=== PATIENT | female | born 1940 | race Two or more races ===

== ENCOUNTER 2020-07-31 00:02 | Inpatient (IN) | payer MEDICARE, OTHER ==
[~2020-07-31] VITALS: Ht 162.6 cm; Wt 57.2 kg
--- NOTE | 2020-07-31 00:10 | NUR ---
PT AAOX3. JENNIFER FROM [facility] S/P UNWITNESSED FALL. PT PLACED IN BED 9 ON MONITOR AND PULSE OX. MD AT BEDSIDE FOR EVAL. AWAITING ORDERS.
--- NOTE | 2020-07-31 00:13 | NUR ---
HUY [phone]
--- NOTE | 2020-07-31 00:15 | NUR ---
LINE ESTABLISHED LAC 20G, BLOOD DRAWNM, AND SENT TO LAB.
[2020-07-31 00:36] LABS: BASOPHILS # (AUTO) 0.1 /CMM (0.0-0.2); BASOPHILS % (AUTO) 0.3 % (0.0-2.0); HEMATOCRIT 37 % (33-45); HEMOGLOBIN 11.9 g/dL (11.5-14.8); LYMPHOCYTES # (AUTO) 0.4 /CMM (0.8-4.8); LYMPHOCYTES % (AUTO) 2.4 % (20.0-44.0); MEAN CORPUSCULAR HGB CONC 33 g/dl (31.0-36.0); MEAN CORPUSCULAR VOLUME 91 fL (82-100); MONOCYTES # (AUTO) 0.6 /CMM (0.1-1.30); MONOCYTES % (AUTO) 3.9 % (2.0-12.0); NEUTROPHILS # (AUTO) 13.8 /CMM (1.8-8.9); NEUTROPHILS % (AUTO) 93.4 % (43.0-81.0); PLATELET COUNT (AUTO) 265 /CMM (150-450); RED BLOOD CELL COUNT(AUTO) 4.01 MIL/uL (4.0-5.2); WHITE BLOOD COUNT (AUTO) 14.8 K/uL (4.3-11.0)
--- NOTE | 2020-07-31 00:38 | NUR ---
NATALIEID SWABBED, SENT TO LAB.
--- NOTE | 2020-07-31 00:38 | NUR ---
CHECKED PT'S PAPER WORK, NO MED LIST.
--- NOTE | 2020-07-31 00:47 | NUR ---
BROUGHT TO CT
--- NOTE | 2020-07-31 01:04 | NUR ---
call from lab, rapid covid negative.
[2020-07-31 01:26] LABS: ALANINE AMINOTRANSFERASE 26 U/L (12-78); ALBUMIN 3.1 g/dL (3.4-5.0); ALKALINE PHOSPHATASE 104 U/L (46-116); ASPARTATE AMINOTRANSFERASE 24 U/L (15-37); BILIRUBIN,DIRECT 0.1 mg/dL (0.0-0.2); BILIRUBIN,TOTAL 0.4 mg/dL (0.2-1.0); CALCIUM, SERUM 8.3 mg/dL (8.5-10.1); CARBON DIOXIDE 24 mmol/L (21-32); CHLORIDE 104 mmol/L (98-107); CREATININE 1.3 mg/dL (0.6-1.3); GLUCOSE 272 mg/dL (74-106); POTASSIUM 4.4 mmol/L (3.5-5.1); SODIUM SERUM 138 mmol/L (136-145); TOTAL PROTEIN, SERUM 7.4 g/dL (6.4-8.2); UREA NITROGEN, BLOOD 28 mg/dL (7-18)
--- NOTE | 2020-07-31 01:27 | NUR ---
BED ASSIGNMENT 114-1
--- NOTE | 2020-07-31 01:50 | NUR ---
REPORT GIVEN TO EVELYN ANDRE FOR ZIA
--- NOTE | 2020-07-31 01:52 | NUR ---
SPOKE TO THE PT'S DAUGHTER REGARDING PLAN OF CARE
[2020-07-31] MEDS ORDERED: TEMAZEPAM 15 MG CAPSULE PO PRN (02:00)
[2020-07-31] MEDS ORDERED: ONDANSETRON HCL/PF 4 MG/2 ML VIAL IVP PRN (02:00)
[2020-07-31] MEDS ORDERED: Z GUARD REMEDY 2 OZ OINT TP PRN (02:00)
[2020-07-31] MEDS ORDERED: MAGNESIUM HYDROXIDE 30 ML UDC PO PRN (02:00)
[2020-07-31] MEDS ORDERED: MAG HYDROX/AL HYDROX/SIMETH 30 ML UDC PO PRN (02:00)
[2020-07-31] MEDS ORDERED: DEXTROSE 50%-WATER 50 ML DISP.SYRIN IV PRN (02:00)
[2020-07-31] MEDS ORDERED: MORPHINE SULFATE INJ 2 MG/ML DISP.SYRIN IV PRN (02:00)
[2020-07-31] MEDS ORDERED: HYDROCODONE/APAP 5/325MG TABLET PO PRN (02:00)
[2020-07-31 02:05] VITALS: BP 130/64
--- NOTE | 2020-07-31 02:05 | NUR ---
RECEIVED PT VIA GURNEY FROM ED. ON ROOM AIR. VITAL SIGNS. 98.0 HR 90. O2 SAT 96% BP 130/64. TELE MONITORING IN PLACE. PT VERBALIZED DESIRE TO BE FULL CODE. NO S/S OF RESP DISTRESS OR SOB. BREATHING EVEN AND UNLABORED. IV SITE IS FLUSHED, PATENT. PT DENIES PAIN AT THIS TIME. PT IS A/O X 2-3. CONFUSED. BUT COOPERATIVE. SAFETY MEASURES IN PLACE; BED LOCKED IN LOWEST POSITION WITH BED ALARM ON. WILL CONTINUE TO MONITOR.
--- NOTE | 2020-07-31 02:06 | NUR ---
PT TRANSFERED PER ACLS PROTOCOL
[2020-07-31 04:00] VITALS: BP 116/62
[2020-07-31] MEDS: IV NS 0.9% 1,000 ML IV PRN ×2 (04:33→20:25)
--- NOTE | 2020-07-31 07:55 | NUR ---
RN CLOSING NOTES PT RESTED WELL THROUGHOUT THE NIGHT. NO S/S OF APPARENT DISTRESS OR SOB OR RESP DISTRESS AT THIS TIME. NEEDS ATTENDED. DENIES PAIN AT THIS TIME. NO BM TONIGHT. PT CLEANED. REPOSITIONED Q2H. HEELS FLOATED. VERBALIZED BM 07/30. IVF 0.9 NS RUNNING AT 75ML/HR. NO S/S OF INFILTRATION NOTED AT THIS TIME. SAFETY MEASURES IN PLACE. BED LOCKED IN LOWEST POSITION. BED ALARM ON. CALL LIGHT WITHIN REACH. ENDORSED TO AM NURSE FOR CONTINUATION OF CARE.
[2020-07-31 08:00] VITALS: BP_SYST 120; BP_SYST 125; BP_DIAS 61; BP_DIAS 82
--- NOTE | 2020-07-31 08:00 | NUR ---
BOX PRINTING MACHINE OPERATOR AM NOTES RECEIVED PT COMFORTABLY LYING IN BED.CONFUSED. NO SOB ON ROOM AIR. NO S/S OF DISCOMFORT. NEEDS ATTENDED. DENIES PAIN AT THIS TIME. NO BM TONIGHT. PT CLEANED. REPOSITIONED Q2H. HEELS FLOATED. IVF 0.9 NS RUNNING AT 75ML/HR ON LT AC INFUSING WELL. NO S/S OF INFILTRATION NOTED AT THIS TIME. SAFETY MEASURES IN PLACE. BED LOCKED IN LOWEST POSITION. BED ALARM ON. CALL LIGHT WITHIN REACH.
[2020-07-31] MEDS: BLOOD SUGAR DIAGNOSTIC 1 EACH STRIP IN SCH ×4 (08:38→22:40)
[2020-07-31] MEDS: INSULIN REGULAR, HUMAN 100 UNIT/ML 3 ML VIAL SQ PRN ×4 (08:40→22:42)
[2020-07-31] MEDS: ENOXAPARIN SODIUM 30 MG/0.3 ML DISP.SYRIN SQ SCH (08:41)
[2020-07-31] MEDS ORDERED: MULT-594 PO (10:00)
[2020-07-31] MEDS ORDERED: SENN-261 PO (10:00)
[2020-07-31] MEDS ORDERED: DOCU-270 PO (10:00)
[2020-07-31] MEDS ORDERED: FERR325T29 PO (10:00)
[2020-07-31] MEDS ORDERED: ASPI-1169 PO (10:00)
[2020-07-31] MEDS ORDERED: SODI1TAB24 PO (10:22)
[2020-07-31] MEDS ORDERED: INSU3INS8 SQ ×2 (10:22)
[2020-07-31] MEDS ORDERED: ACET-2605 PO (10:22)
[2020-07-31] MEDS ORDERED: TRAM50TA2 PO (10:22)
[2020-07-31 12:00] VITALS: BP 115/61
[2020-07-31 12:55] LABS: APPEARANCE,URINE TURBID (CLEAR)
[2020-07-31 12:56] LABS: COLOR,URINE YELLOW (YELLOW)
[2020-07-31 12:57] LABS: BILIRUBIN,URINE NEGATIVE (NEGATIVE); BLOOD, URINE 2+ Ery/uL (NEGATIVE); KETONES,URINE TRACE (NEGATIVE); PROTEIN,URINE 2+ mg/dl (NEGATIVE); UGLUCOSE 1000 MG/DL mg/dL (NEGATIVE); UROBILINOGEN,URINE 0.2 EU/dL (0.2)
[2020-07-31 12:58] LABS: LEUKOCYTE ESTERASE ,URINE 2+ (NEGATIVE); NITRITE, URINE NEGATIVE (NEGATIVE)
[2020-07-31 12:59] LABS: BACTERIA,URINE Many /HPF (None Seen); SQUAMOUS EPITHELIAL CELL,UR Few /HPF (None Seen); WBC,URINE 51-80 /HPF (0-3)
[2020-07-31 16:00] VITALS: BP 137/64
[2020-07-31 16:50] LABS: CREATININE, URINE < 13.0 MG/DL (30.0-125.0); URINE SODIUM, RANDOM 65 mmol/l (40-220); URINE TOTAL PROTEIN 126.3 mg/dL (0-11.9)
--- NOTE | 2020-07-31 18:30 | NUR ---
FREDO RN NOTE AT 1830 PT HAD A LOW GRADE FEVER OF 100.4 F. COOLING MEASURES RENDERED. PT EDUCATED AND ENCOURAGED TO DRINK AND PUSH FLUIDS. PT DRANK COFFEE THROUGHOUT THE SHIFT. PAGED DR Lara CHATTERJEE. TYLENOL 650 MG PO ADMINISTERED.
[2020-07-31] MEDS: ACETAMINOPHEN 325 MG TABLET PO PRN (18:35)
[2020-07-31 20:00] VITALS: BP 130/61
[2020-07-31] MEDS: CEFTRIAXONE 1 G in IV D5W 50 ML IV SCH (20:20)
[2020-08-01] VITALS: BP 120/51
[2020-08-01 04:00] VITALS: BP 121/60
[2020-08-01 06:28] LABS: BASOPHILS # (AUTO) 0.1 /CMM (0.0-0.2); BASOPHILS % (AUTO) 0.7 % (0.0-2.0); EOSINOPHILS % (AUTO) 1.5 % (0.0-6.0); HEMATOCRIT 33 % (33-45); HEMOGLOBIN 10.9 g/dL (11.5-14.8); MEAN CORPUSCULAR HGB CONC 33 g/dl (31.0-36.0); MEAN CORPUSCULAR VOLUME 90 fL (82-100); MONOCYTES # (AUTO) 0.6 /CMM (0.1-1.30); MONOCYTES % (AUTO) 7.3 % (2.0-12.0); NEUTROPHILS # (AUTO) 6.8 /CMM (1.8-8.9); NEUTROPHILS % (AUTO) 78.5 % (43.0-81.0); PLATELET COUNT (AUTO) 225 /CMM (150-450); RED BLOOD CELL COUNT(AUTO) 3.64 MIL/uL (4.0-5.2); WHITE BLOOD COUNT (AUTO) 8.7 K/uL (4.3-11.0)
[2020-08-01 06:36] LABS: ALBUMIN 2.4 g/dL (3.4-5.0); BILIRUBIN,TOTAL 0.4 mg/dL (0.2-1.0); CALCIUM, SERUM 7.8 mg/dL (8.5-10.1); CREATININE 1.1 mg/dL (0.6-1.3); MAGNESIUM 2.2 mg/dL (1.8-2.4); PHOSPHORUS 2.3 mg/dL (2.5-4.9); POTASSIUM 3.9 mmol/L (3.5-5.1); TOTAL PROTEIN, SERUM 6.1 g/dL (6.4-8.2)
[2020-08-01 06:53] LABS: THYROID STIMULATING HORMONE 1.481 uIU/mL (0.358-3.74)
--- NOTE | 2020-08-01 07:15 | NUR ---
LEAD TINNER OPENING NOTES RECEIVED PT COMFORTABLY LYING IN BED. A/O X2-3, CONFUSED. ON ROOM AIR SATURATING @95%. NO SOB. NO PAIN REPORTED AT THIS TIME. L AC #20 INTACT AND PATENT. IVF 0.9 NS RUNNING AT 75ML/HR, INFUSING WELL. NO SIGNS OF INFILTRATION NOTED AT THIS TIME. SAFETY MEASURES IN PLACE. CALL LIGHT WITHIN REACH. BED LOCKED AND AT LOWEST POSITION WITH SIDE RAILS UP X2. BED ALARM ON. WILL CONTINUE TO MONITOR
[2020-08-01] MEDS: BLOOD SUGAR DIAGNOSTIC 1 EACH STRIP IN SCH ×4 (07:38→21:45)
[2020-08-01 08:00] VITALS: BP 115/56
[2020-08-01] MEDS: ENOXAPARIN SODIUM 30 MG/0.3 ML DISP.SYRIN SQ SCH (08:25)
[2020-08-01] MEDS: INSULIN REGULAR, HUMAN 100 UNIT/ML 3 ML VIAL SQ PRN ×4 (08:26→21:49)
[2020-08-01] MEDS: IV NS 0.9% 1,000 ML IV PRN (10:18)
[2020-08-01] MEDS: ASPIRIN 81 MG TAB.CHEW PO SCH (10:20)
[2020-08-01 10:31] LABS: IRON, SERUM 24 ug/dl (50-175); TOTAL IRON BINDING CAPACITY 200 ug/dl (250-450)
[2020-08-01 12:00] VITALS: BP 134/58
[2020-08-01 13:09] LABS: FERRITIN 89 ng/mL (8-388)
[2020-08-01 16:00] VITALS: BP 130/57
[2020-08-01] MEDS ORDERED: NEUTRA PHOS 1 POWD.PACKET PO ONE (16:00)
--- NOTE | 2020-08-01 19:28 | NUR ---
SUPERVISOR BEET END CLOSING NOTES PT COMFORTABLY LYING IN BED. A/O X2-3, EPISODES OF CONFUSION. ON ROOM AIR SATURATING @95%. NO SOB. NO PAIN REPORTED AT THIS TIME. L AC #20 INTACT AND PATENT. IVF 0.9 NS RUNNING AT 75ML/HR, INFUSING WELL. NO SIGNS OF INFILTRATION NOTED AT THIS TIME. SAFETY MEASURES IN PLACE. CALL LIGHT WITHIN REACH. BED LOCKED AND AT LOWEST POSITION WITH SIDE RAILS UP X2. BED ALARM ON. WILL ENDORSE TO NIGHT NURSE FOR ZIA
--- NOTE | 2020-08-01 19:53 | NUR ---
SUPERVISING FLOORPERSON OPENING NOTE RECEIVED PT IN BED. A/O X2. BREATHING EVEN AND UNLABORED IN RA. DENIES ANY PAIN OR DISCOMFORT. LEFT AC #20 INTACT AND PATENT. DRESSING CLEAN AND DRY. IV FLUIDS INFUSING WELL. ALL NEEDS RENDERED. KEPT CLEAN AND DRY. BED IN LOWEST POSITION. CALL LIGHT WITHIN REACH. WILL CONTINUE TO MONITOR
[2020-08-01 20:00] VITALS: BP 139/45
[2020-08-01] MEDS: CEFTRIAXONE 1 G in IV D5W 50 ML IV SCH (20:14)
[2020-08-02] VITALS: BP 137/55
[2020-08-02] MEDS: IV NS 0.9% 1,000 ML IV PRN ×2 (00:33→13:08)
[2020-08-02] MEDS: ACETAMINOPHEN 325 MG TABLET PO PRN (01:13)
[2020-08-02 04:00] VITALS: BP 127/51
--- NOTE | 2020-08-02 06:23 | NUR ---
rn labor and delivery closing note Pt in bed. awake . breathing even and unlabored with no sob or acute distress noted. Denies any pain or discomfort. Left ac iv line patent and intact. Iv fluids infusing well. Kept clean and dry. All needs rendered. Repositioned. Will endorse to am nurse for continuity of care.
[2020-08-02 07:29] LABS: EOSINOPHILS % (AUTO) 5.3 % (0.0-6.0); HEMATOCRIT 32 % (33-45); HEMOGLOBIN 10.4 g/dL (11.5-14.8); LYMPHOCYTES # (AUTO) 1.2 /CMM (0.8-4.8); LYMPHOCYTES % (AUTO) 25.5 % (20.0-44.0); MEAN CORPUSCULAR HGB CONC 33 g/dl (31.0-36.0); MEAN CORPUSCULAR VOLUME 90 fL (82-100); MONOCYTES # (AUTO) 0.5 /CMM (0.1-1.30); MONOCYTES % (AUTO) 10.8 % (2.0-12.0); NEUTROPHILS # (AUTO) 2.7 /CMM (1.8-8.9); NEUTROPHILS % (AUTO) 57.4 % (43.0-81.0); PLATELET COUNT (AUTO) 203 /CMM (150-450); RED BLOOD CELL COUNT(AUTO) 3.52 MIL/uL (4.0-5.2); WHITE BLOOD COUNT (AUTO) 4.8 K/uL (4.3-11.0)
--- NOTE | 2020-08-02 07:36 | NUR ---
TELE/RN OPINING NOTES RECEIVED PATIENT AWAKE ON BED.ALERT AND ORIENTED X3 CONFUSED. PATIENT IN NO APPARENT RESPIRATORY DISTRESS NOTED. DENIES PAIN AT THIS TIME. TELE MONITOR IN PLACE READING SB-SR 61 BPM. WILL CONTINUE TO MONITOR.
[2020-08-02] MEDS: BLOOD SUGAR DIAGNOSTIC 1 EACH STRIP IN SCH ×3 (07:38→17:21)
[2020-08-02 08:00] VITALS: BP 123/46
[2020-08-02 08:30] LABS: CALCIUM, SERUM 7.6 mg/dL (8.5-10.1); MAGNESIUM 2.2 mg/dL (1.8-2.4); PHOSPHORUS 2.7 mg/dL (2.5-4.9)
[2020-08-02] MEDS: ASPIRIN 81 MG TAB.CHEW PO SCH (08:35)
[2020-08-02] MEDS: ENOXAPARIN SODIUM 30 MG/0.3 ML DISP.SYRIN SQ SCH (08:36)
--- NOTE | 2020-08-02 10:44 | NUR ---
MS/RN NOTES PATIENT COMPLAINED OF PAIN RATED 7/10. NORCO 5/325MG 1 TAB WAS GIVEN. WILL CONTINUE TON MONITOR.
[2020-08-02] MEDS: INSULIN REGULAR, HUMAN 100 UNIT/ML 3 ML VIAL SQ PRN ×2 (11:15→17:21)
[2020-08-02] MEDS ORDERED: SOD FERRIC GLUC 125 MG in IV NS 0.9% 100 ML IV SCH (14:00)
--- NOTE | 2020-08-02 14:13 | NUR ---
MS/RN NOTES [facility] 9.9 REPORT GIVEN BY Videostir, DR. MARTINEZ IS AWARE. NO NEW ORDER AT THIS TIME
--- NOTE | 2020-08-02 15:35 | NUR ---
MS/RN NOTES [facility] 9.9 UVALDO HENDRIX NP IS AWARE. NO NEW ORDER AT THIS TIME. LORI LESLIE (DAUGHTER) WANT TO TALK TO THE DOCTOR , UVALDO IS AWARE.
--- NOTE | 2020-08-02 18:10 | NUR ---
MS/RN NOTES PATIENT IS ALERT AND ORIENTED X3. IN ROOM AIR AND SATURATION IS AT 95%. RESPIRATION REGULAR AND UNLABORED. PATIENT DENIES PAIN AT THIS TIME. PATIENT IN NO APPARENT RESPIRATORY DISTRESS NOTED. SEEN AND EXAMINED BY MD WITH ORDERS MADE AND CARRIED OUT. ALL DUE MEDICATIONS WAS GIVEN. PATIENT WAS GIVEN DISCHARGED INSTRUCTIONS AND PATIENT VERBALIZED UNDERSTANDING. THE PATIENT LEFT IN THE HOSPITAL IN MEDICALLY STABLE CONDITION AT 1810. CAR RETARDER OPERATOR BY 2 EMT VIA AMBULANCE.
[2020-08-03 07:06] LABS: PTH, INTACT 60 pg/mL (15-65)
[2020-08-03 16:31] LABS: *SPE A/G RATIO 0.9 (0.7-1.7); *SPE ALBUMIN 2.7 g/dL (2.9-4.4); *SPE ALPHA-1-GLOBULIN 0.2 g/dL (0.0-0.4); *SPE ALPHA-2-GLOBULIN 0.7 g/dL (0.4-1.0); *SPE BETA GLOBULIN 0.8 g/dL (0.7-1.3); *SPE GLOBULIN, TOTAL 2.9 g/dL (2.2-3.9); *SPE M-SPIKE Not Observed g/dL (Not Observed); *SPEGAMMA GLOBULIN 1.2 g/dL (0.4-1.8)
== END 2020-08-02 18:07 | disposition home health service (06) | DRG 73 ==
LOC: ER 00:05 → TELE1 01:35 → MEDSG1 08-02 08:04
PROVIDERS: ATTEND Nurse Practitioner Acute Care
DX: G90.8 Other disorders of autonomic nervous system (principal); N17.0 Acute kidney failure with tubular necrosis; G93.40 Encephalopathy, unspecified; E46 Unspecified protein-calorie malnutrition; M62.82 Rhabdomyolysis; N39.0 Urinary tract infection, site not specified; W19.XXXA Unspecified fall, initial encounter; Y93.9 Activity, unspecified; F03.90 Unspecified dementia, unspecified severity, without behavioral disturbance, psychotic disturbance, mood disturbance, and anxiety; I10 Essential (primary) hypertension; Z86.73 Personal history of transient ischemic attack (TIA), and cerebral infarction without residual deficits; E78.5 Hyperlipidemia, unspecified; I25.10 Atherosclerotic heart disease of native coronary artery without angina pectoris; I45.10 Unspecified right bundle-branch block; S00.83XA Contusion of other part of head, initial encounter; M25.551 Pain in right hip; E11.40 Type 2 diabetes mellitus with diabetic neuropathy, unspecified; D64.9 Anemia, unspecified; Z95.1 Presence of aortocoronary bypass graft; Z99.3 Dependence on wheelchair; Y92.003 Bedroom of unspecified non-institutional (private) residence as the place of occurrence of the external cause
CPT/HCPCS: 36415; 70450-TC; 70486-TC; 71045-TC; 72125-TC; 73502; 80048-TC; 80053-TC; 80061-TC; 80076-TC; 81000-TC; 82550-TC; 82553; 82570-TC; 82728-TC; 82962-TC; 83540-TC; 83735-TC; 83970; 84100-TC; 84155; 84155-TC; 84165; 84300-TC; 84439-TC; 84443-TC; 84484-TC; 85025-TC; 85730-TC; 87081-TC; 87086-TC; 93307-TC; 93880-TC; 97112-TC; 97530-TC; C9803; G0378; J0696; J1650; J1815; J2916; J7030; J7060

== ENCOUNTER 2021-11-26 13:06 | Inpatient (IN) | payer MEDICARE, OTHER ==
[~2021-11-26] VITALS: Ht 152.4 cm; Wt 63.0 kg
[~2021-11-26 13:06] MED LIST: ACET-2605 PO; ASPI-1169 PO; DOCU-270 PO; FERR325T29 PO; INSU3INS8 SQ; MULT-594 PO; SENN-261 PO; SODI1TAB24 PO; TRAM50TA2 PO
--- NOTE | 2021-11-26 13:11 | NUR ---
TO ER BED 6, [facility] ADMIN, NOTED FOR SLURRING OF SPEECH, NOT MOVING HER RUE/RLE, NOTICED DURING MORNING ROUNDS, LKW 10PM, FOLLOWS COMMANDS, MUMBLES BUT INCOMPREHENSIBLE, CONNECTED TO MONITOR, AWAITING MD ORDERS
[2021-11-26] MEDS ORDERED: IV NS 0.9% 250 ML IV ONE (13:34)
[2021-11-26] MEDS ORDERED: IOHEXOL-350 100 ML VIAL IV ONE (13:34)
[2021-11-26] MEDS ORDERED: CALC-167 PO (13:45)
[2021-11-26] MEDS ORDERED: POLY17PO4 PO (13:45)
[2021-11-26] MEDS ORDERED: IBUP-1953 PO (13:46)
[2021-11-26] MEDS ORDERED: LOPE2TAB25 PO (13:46)
[2021-11-26 14:05] LABS: BASOPHILS % (AUTO) 0.4 % (0.0-2.0); EOSINOPHILS % (AUTO) 2.9 % (0.0-6.0); HEMATOCRIT 40 % (33-45); HEMOGLOBIN 12.9 g/dL (11.5-14.8); LYMPHOCYTES # (AUTO) 1.4 K/uL (0.8-4.8); LYMPHOCYTES % (AUTO) 16.8 % (20.0-44.0); MEAN CORPUSCULAR HGB CONC 32 g/dl (31.0-36.0); MEAN CORPUSCULAR VOLUME 90 fL (82-100); MONOCYTES # (AUTO) 0.6 K/uL (0.1-1.30); MONOCYTES % (AUTO) 7.2 % (2.0-12.0); NEUTROPHILS # (AUTO) 5.9 K/uL (1.8-8.9); NEUTROPHILS % (AUTO) 72.7 % (43.0-81.0); PLATELET COUNT (AUTO) 215 K/uL (150-450); RED BLOOD CELL COUNT(AUTO) 4.39 MIL/uL (4.0-5.2)
[2021-11-26 14:08] LABS: CALCIUM, SERUM 8.6 mg/dL (8.5-10.1); CARBON DIOXIDE 28 mmol/L (21-32); CHLORIDE 105 mmol/L (98-107); CREATININE 1.1 mg/dL (0.6-1.3); GLUCOSE 308 mg/dL (74-106); POTASSIUM 4.6 mmol/L (3.5-5.1); SODIUM SERUM 138 mmol/L (136-145); UREA NITROGEN, BLOOD 35 mg/dL (7-18)
--- NOTE | 2021-11-26 14:16 | NUR ---
COVID SWAB DONE AND SENT TO LAB
--- NOTE | 2021-11-26 14:17 | NUR ---
CALLED NURSING SUP REGARDING PT BED
--- NOTE | 2021-11-26 14:43 | NUR ---
SENT CT IMAGED TO DR. HAILE, NEUROSURGEON
--- NOTE | 2021-11-26 16:33 | NUR ---
URINE COLLECTED AND SENT TO LAB
--- NOTE | 2021-11-26 16:44 | NUR ---
ROOM 307-2
--- NOTE | 2021-11-26 16:48 | NUR ---
ATTEMPTED TO GIVE REPORT, NURSE SANJUANA IS CURRENTLY DISCHARGING ANOTHER PATIENT AT THE MOMENT
[2021-11-26] MEDS ORDERED: ACETAMINOPHEN 325 MG TABLET PO PRN ×2 (17:00→17:45)
[2021-11-26] MEDS ORDERED: *INSULIN REGULAR(HUMULIN R)HUM 100 UNIT/ML VIAL SQ PRN (17:00)
[2021-11-26] MEDS ORDERED: ONDANSETRON HCL/PF 4 MG/2 ML VIAL IVP PRN ×2 (17:00→17:45)
[2021-11-26] MEDS ORDERED: MAG HYDROX/AL HYDROX/SIMETH 30 ML UDC PO PRN ×2 (17:00→17:45)
[2021-11-26] MEDS ORDERED: INSULIN REGULAR, HUMAN 100 UNIT/ML 3 ML VIAL SQ PRN (17:00)
[2021-11-26] MEDS ORDERED: DOCUSATE SODIUM 100 MG CAPSULE PO SCH (17:00)
[2021-11-26] MEDS ORDERED: MAGNESIUM HYDROXIDE 30 ML UDC PO PRN ×2 (17:00→17:45)
[2021-11-26] MEDS ORDERED: DEXTROSE 50%-WATER 50 ML DISP.SYRIN IV PRN ×2 (17:00→17:45)
[2021-11-26] MEDS ORDERED: Z GUARD REMEDY 4 OZ OINT TP PRN ×2 (17:00→17:45)
[2021-11-26] MEDS ORDERED: TRAMADOL HCL 50 MG TABLET PO PRN ×2 (17:00→17:45)
--- NOTE | 2021-11-26 17:11 | NUR ---
REPORT GIVEN TO SANJUANA ANDRE FOR ZIA
[2021-11-26] MEDS ORDERED: BLOOD SUGAR DIAGNOSTIC 1 EACH STRIP IN SCH ×2 (17:30→18:00)
[2021-11-26] MEDS ORDERED: ENOXAPARIN SODIUM 30 MG/0.3 ML DISP.SYRIN SQ SCH (17:30)
[2021-11-26] MEDS ORDERED: BLOOD SUGAR DIAGNOSTIC 1 EACH STRIP VI SCH (17:30)
[2021-11-26 17:42] LABS: BILIRUBIN,URINE NEGATIVE (NEGATIVE); COLOR,URINE YELLOW (YELLOW); LEUKOCYTE ESTERASE ,URINE MODERATE (NEGATIVE); NITRITE, URINE NEGATIVE (NEGATIVE); PH,URINE 6.5 (5.0-8.0); PROTEIN,URINE 30 mg/dl (NEGATIVE); UGLUCOSE >=1000 mg/dL (NEGATIVE); UROBILINOGEN,URINE 0.2 EU/dL (0.2)
--- NOTE | 2021-11-26 17:42 | NUR ---
TRANSFER TO ROOM 307 IN STABLE CONDITION
--- NOTE | 2021-11-26 17:50 | NUR ---
CONTRACT TECHNICAL WRITER NOTES RECEIVED PATIENT IN BED. PATIENT INITIAL ASSESSMENTS: A/O X2 BRAZILIAN SPEAKING, SLURRED SPEECH AND RIGHT SIDED WEAKNESS. PATIENT HAS HYPERACTIVE BOWEL SOUNDS. S1-S2 AUDIBLE. LUNG SOUNDS ARE CLEAR THROUGHOUT THE LOBES. BREATHING EXPANSION IS EQUAL. DORSALIS PEDIS PULSE PALPABLE. CAPILLARY REFILL LESS THAN 3. NO SWELLING OF THE LEGS AND SKIN INTACT. HEENT COLOR WNL. EYE IS PERRLA. PATIENT IS ON ROOM AIR. NO S/S OF SOB OR ANY ACUTE DISTRESS. PATIENT WILL BE MONITORED CLOSELY.
[2021-11-26 17:58] LABS: BACTERIA,URINE 4+ /HPF (None Seen); RBC,URINE 51-80 /HPF (0-2); SQUAMOUS EPITHELIAL CELL,UR 0-2 /HPF (None Seen); WBC,URINE 81-100 /HPF (0-3)
[2021-11-26] MEDS: BLOOD SUGAR DIAGNOSTIC 1 EACH STRIP IN SCH ×2 (18:39→22:30)
[2021-11-26] MEDS: INSULIN REGULAR, HUMAN 100 UNIT/ML 3 ML VIAL SQ PRN (18:39)
[2021-11-26] MEDS: ENOXAPARIN SODIUM 30 MG/0.3 ML DISP.SYRIN SQ SCH (18:41)
[2021-11-26 18:46] VITALS: BP 146/82
[2021-11-26 20:00] VITALS: BP 173/76
--- NOTE | 2021-11-26 21:09 | NUR ---
Per Dr. Friedman patient is okay to eat in his opinion. Cardiac diet resumed. Was cancelled originally because "patient departed" but was error because patient did end up getting admitted. Passed nursing swallow screen in ER and on unit.
[2021-11-26] MEDS: SENNOSIDES 8.6 MG TABLET PO SCH (21:59)
[2021-11-26] MEDS ORDERED: SENNOSIDES 8.6 MG TABLET PO SCH (22:00)
[2021-11-26] MEDS: BLOOD SUGAR DIAGNOSTIC 1 EACH STRIP VI SCH (22:30)
--- NOTE | 2021-11-26 22:31 | NUR ---
Patient given PRN tramadol because visibly in pain -facial grimacing, crying, and guarding, as well as elevated B/P. PRN Tramadol given B/P went down to 153/60.
[2021-11-26 22:33] VITALS: BP 153/60
[2021-11-27] VITALS: BP 136/64
--- NOTE | 2021-11-27 02:26 | NUR ---
DPOA Gaye Brice [phone]
[2021-11-27 04:00] VITALS: BP 105/40
[2021-11-27] MEDS: BLOOD SUGAR DIAGNOSTIC 1 EACH STRIP IN SCH ×8 (06:00→21:21)
--- NOTE | 2021-11-27 06:28 | NUR ---
Patient has been A&Ox1 overnight. Patient occasionally tries to speak but has difficulty or words are very slurred. Almost complete paralysis of R side and R sided facial droop persists. Able to tolerate medications crushed with applesauce well, no choking, no pocketing, no drooling, no coughing. Has been Sr with ST depression in 70s overnight on tele monitor. LAC #20G patent and flushed. Kept clean and dry. Turning and offloading to prevent skin bvreakdown. Kept clean and dry as well. Currently awake and alert resting in bed.
[2021-11-27] MEDS: BLOOD SUGAR DIAGNOSTIC 1 EACH STRIP VI SCH ×3 (06:55→18:00)
--- NOTE | 2021-11-27 07:37 | NUR ---
RN OPENING NOTES Patient seen comfortably lying in bed, no SOB, no apparent distress noted, breathing even and unlabored, no grimacing. Call light left within reach, safety precautions in place, brakes locked, side rails up X 2, will monitor closely for any changes.
[2021-11-27 08:25] LABS: CALCIUM, SERUM 8.1 mg/dL (8.5-10.1); CREATININE 0.9 mg/dL (0.6-1.3); POTASSIUM 3.9 mmol/L (3.5-5.1)
[2021-11-27 08:39] LABS: BASOPHILS % (AUTO) 0.4 % (0.0-2.0); EOSINOPHILS % (AUTO) 2.2 % (0.0-6.0); HEMATOCRIT 36 % (33-45); HEMOGLOBIN 11.8 g/dL (11.5-14.8); LYMPHOCYTES # (AUTO) 1.6 K/uL (0.8-4.8); LYMPHOCYTES % (AUTO) 19.9 % (20.0-44.0); MEAN CORPUSCULAR HGB CONC 33 g/dl (31.0-36.0); MEAN CORPUSCULAR VOLUME 89 fL (82-100); MONOCYTES # (AUTO) 0.5 K/uL (0.1-1.30); MONOCYTES % (AUTO) 6.4 % (2.0-12.0); NEUTROPHILS # (AUTO) 5.8 K/uL (1.8-8.9); NEUTROPHILS % (AUTO) 71.1 % (43.0-81.0); PLATELET COUNT (AUTO) 212 K/uL (150-450); RED BLOOD CELL COUNT(AUTO) 4.02 MIL/uL (4.0-5.2); WHITE BLOOD COUNT (AUTO) 8.2 K/uL (4.3-11.0)
[2021-11-27] MEDS: DOCUSATE SODIUM 100 MG CAPSULE PO SCH ×2 (08:51→16:02)
[2021-11-27] MEDS: FERROUS SULFATE (325 MG) 325 MG/TAB TABLET PO SCH (08:51)
[2021-11-27] MEDS ORDERED: ASPIRIN 81 MG TAB.CHEW PO SCH ×2 (09:00)
[2021-11-27] MEDS ORDERED: FERROUS SULFATE (325 MG) 325 MG/TAB TABLET PO SCH (09:00)
[2021-11-27] MEDS: INSULIN REGULAR, HUMAN 100 UNIT/ML 3 ML VIAL SQ PRN ×2 (11:46→17:58)
--- NOTE | 2021-11-27 12:00 | NUR ---
dr Dunn informed about consult and he stated that he is not able to come because hospital can't really do any procedures if its operative inpatient. If pt needs surgery needs to be transferred for higher level of care or if it needs surgery electively can follow up outpatient. Dr. Payne informed and will inform hospitalist as well.
--- NOTE | 2021-11-27 12:42 | NUR ---
received call from dr. Payne to inform hospitalist that pt needs consult with dr. Velasquez neurosurgeon, and if he is not able to come for consult to transfer pt for higher level of care. Dr. Friedman informed via phone, and he stated that he will take care of it.
--- NOTE | 2021-11-27 15:56 | NUR ---
Received a phone order from Dr. Payne to restart Aspirin 81mg od and give first dose now, order read back and carried out.
[2021-11-27] MEDS: ASPIRIN 81 MG TAB.CHEW PO SCH (16:02)
[2021-11-27] MEDS: ENOXAPARIN SODIUM 30 MG/0.3 ML DISP.SYRIN SQ SCH (17:53)
--- NOTE | 2021-11-27 18:23 | NUR ---
RN CLOSING NOTES Patient lying in bed, no shortness of breath, respirations even and unlabored, no apparent distress noted, no grimacing, no dizziness, no palpitations, no chest pain, remained afebrile. All due medications given per MD order, tolerating well. No s/s of hypo or hyperglycemia, no tremors, no change in level of consciousness. Aspiration precautions observed at all times, kept head of bed elevated, all needs anticipated, kept clean and dry, patient repositioned frequently, safety precautions in place, frequent visual checks rendered, side rails up X 2, brakes locked, call light left within reach, will endorse to next shift for continuity of care.
--- NOTE | 2021-11-27 19:20 | NUR ---
TELE/RN OPENING NOTE RECEIVED PATIENT RESTING IN BED. AWAKE, ALERT AND ORIENTED X 1. NO S/SX OF PAIN NOTED AT THIS TIME. FAMILY CURRENTLY AT BEDSIDE. CONTINUES ON ROOM AIR WITH NO S/SX OF RESPIRATORY DISTRESS NOTED. IV ACCESS TO LEFT AC #20G INTACT, PATENT AND SALINE LOCKED. CONTINUES ON PUREED DIET WITH NO S/SX OF ASPIRATION NOTED. CONTINUES ON NEURO CHECKS QSHIFT. CALL LIGHT WITHIN REACH. ASPIRATION, FALL AND SAFETY PRECAUTIONS MAINTAINED. WILL CONTINUE TO MONITOR. Addendum: 11/27/21 at 2038 by BINU BUI RN TELE MONITOR ON WITH CURRENT READING SR.
[2021-11-27 20:00] VITALS: BP 148/63
[2021-11-27] MEDS: SENNOSIDES 8.6 MG TABLET PO SCH (21:21)
[2021-11-27] MEDS: *INSULIN REGULAR(HUMULIN R)HUM 100 UNIT/ML VIAL SQ PRN (21:35)
[2021-11-28] VITALS: BP 156/81
--- NOTE | 2021-11-28 00:37 | NUR ---
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 NOTIFIED MALTED MILK MASHER MD RODRIGUEZ WITH NO NEW ORDERS AT THIS TIME.
[2021-11-28 04:00] VITALS: BP 153/65
--- NOTE | 2021-11-28 06:20 | NUR ---
TELE/RN CLOSING NOTE PATIENT CURRENTLY RESTING IN BED. AWAKE, ALERT AND ORIENTED X 1. NO S/SX OF PAIN NOTED AT THIS TIME. CONTINUES ON ROOM AIR WITH NO S/SX OF RESPIRATORY DISTRESS NOTED. IV ACCESS TO LEFT AC #20G INTACT, PATENT AND SALINE LOCKED. CONTINUES ON PUREED DIET WITH NO S/SX OF ASPIRATION NOTED. CONTINUES ON NEURO CHECKS QSHIFT. TELE MONITOR IN PLACE WITH CURRENT READING SR. CALL LIGHT WITHIN REACH. ASPIRATION, FALL AND SAFETY PRECAUTIONS MAINTAINED. WILL ENDORSE PLAN OF CARE TO ONCOMING SHIFT.
[2021-11-28 06:40] LABS: BASOPHILS % (AUTO) 0.6 % (0.0-2.0); EOSINOPHILS % (AUTO) 3.6 % (0.0-6.0); HEMATOCRIT 37 % (33-45); HEMOGLOBIN 12.2 g/dL (11.5-14.8); LYMPHOCYTES # (AUTO) 1.9 K/uL (0.8-4.8); LYMPHOCYTES % (AUTO) 24.2 % (20.0-44.0); MEAN CORPUSCULAR HGB CONC 34 g/dl (31.0-36.0); MEAN CORPUSCULAR VOLUME 89 fL (82-100); MONOCYTES # (AUTO) 0.6 K/uL (0.1-1.30); MONOCYTES % (AUTO) 7.4 % (2.0-12.0); NEUTROPHILS % (AUTO) 64.2 % (43.0-81.0); PLATELET COUNT (AUTO) 219 K/uL (150-450); WHITE BLOOD COUNT (AUTO) 7.7 K/uL (4.3-11.0)
[2021-11-28 06:41] LABS: CALCIUM, SERUM 8.4 mg/dL (8.5-10.1); CREATININE 0.9 mg/dL (0.6-1.3); POTASSIUM 3.6 mmol/L (3.5-5.1)
[2021-11-28] MEDS: BLOOD SUGAR DIAGNOSTIC 1 EACH STRIP IN SCH ×4 (06:54→21:21)
[2021-11-28] MEDS: INSULIN REGULAR, HUMAN 100 UNIT/ML 3 ML VIAL SQ PRN ×3 (06:55→17:21)
--- NOTE | 2021-11-28 07:38 | NUR ---
RN OPENING NOTES Patient seen comfortably lying in bed, breathing even and unlabored, no SOB, no apparent distress noted, no grimacing. Call light left within reach, safety precautions in place, brakes locked, side rails up X 2, will monitor closely for any changes.
[2021-11-28 08:00] VITALS: BP 118/64
[2021-11-28] MEDS: DOCUSATE SODIUM 100 MG CAPSULE PO SCH ×2 (08:05→17:11)
[2021-11-28] MEDS: ASPIRIN 81 MG TAB.CHEW PO SCH (08:05)
[2021-11-28] MEDS: FERROUS SULFATE (325 MG) 325 MG/TAB TABLET PO SCH (08:06)
[2021-11-28] MEDS: CLOPIDOGREL BISULFATE 75 MG TABLET PO SCH (08:16)
[2021-11-28 12:00] VITALS: BP 140/62
--- NOTE | 2021-11-28 12:03 | NUR ---
Patient was seen by Speech therapist (Isaias), with recommendations to change liquid to nectar thick liquids, hospitalist made aware and agreed with the plan, orders noted and carried out, dietary made aware, AIRFIELD DEFENCE GUARD and family member at bedside was educated, verbalized understanding and gratitude.
[2021-11-28 16:00] VITALS: BP 154/64
[2021-11-28] MEDS: ENOXAPARIN SODIUM 30 MG/0.3 ML DISP.SYRIN SQ SCH (17:12)
--- NOTE | 2021-11-28 18:23 | NUR ---
RN CLOSING NOTES Patient lying in bed, no apparent distress noted, no shortness of breath, breathing even and unlabored, no dizziness, no palpitations, no chest pain, no grimacing, remained afebrile. All due medications given per MD order, tolerating well. Insulin given per MD order as needed, tolerating well, no s/s of hypo or hyperglycemia, no tremors, no change in level of consciousness. All needs anticipated, aspiration precautions observed at all times, kept clean and dry, patient repositioned frequently, kept head of bed elevated, safety precautions in place, frequent visual checks rendered, side rails up X 2, brakes locked, call light left within reach, will endorse to next shift for continuity of care.
--- NOTE | 2021-11-28 19:20 | NUR ---
TELE/RN OPENING NOTE RECEIVED PATIENT RESTING IN BED. AWAKE, ALERT AND ORIENTED X 1. NO S/SX OF PAIN NOTED AT THIS TIME. CONTINUES ON ROOM AIR WITH NO S/SX OF RESPIRATORY DISTRESS NOTED. IV ACCESS TO LEFT AC #20G INTACT, PATENT AND SALINE LOCKED. CONTINUES ON PUREED DIET/NECTAR THICK LIQUIDS WITH NO S/SX OF ASPIRATION NOTED. CONTINUES ON NEURO CHECKS QSHIFT. CALL LIGHT WITHIN REACH. ASPIRATION, FALL AND SAFETY PRECAUTIONS MAINTAINED. WILL CONTINUE TO MONITOR.
[2021-11-28 20:00] VITALS: BP 149/70
[2021-11-28] MEDS: SENNOSIDES 8.6 MG TABLET PO SCH (21:21)
[2021-11-28] MEDS: *INSULIN REGULAR(HUMULIN R)HUM 100 UNIT/ML VIAL SQ PRN (21:42)
[2021-11-29] VITALS: BP 109/41
[2021-11-29 04:00] VITALS: BP 163/78
[2021-11-29] MEDS: BLOOD SUGAR DIAGNOSTIC 1 EACH STRIP IN SCH ×2 (06:13→11:40)
--- NOTE | 2021-11-29 06:25 | NUR ---
TELE/RN CLOSING NOTE PATIENT CURRENTLY SLEEPING IN BED. ALERT AND ORIENTED X 1. NO S/SX OF PAIN NOTED AT THIS TIME. CONTINUES ON ROOM AIR WITH NO S/SX OF RESPIRATORY DISTRESS NOTED. IV ACCESS TO LEFT AC #20G INTACT, PATENT AND SALINE LOCKED. CONTINUES ON PUREED DIET/NECTAR THICK LIQUIDS WITH NO S/SX OF ASPIRATION NOTED. CONTINUES ON NEURO CHECKS QSHIFT. CALL LIGHT WITHIN REACH. ASPIRATION, FALL AND SAFETY PRECAUTIONS MAINTAINED. WILL ENDORSE PLAN OF CARE TO ONCOMING SHIFT. Addendum: 11/29/21 at 0634 by BINU BUI RN TELE MONITOR ON WITH CURRENT READING SR HR 76
--- NOTE | 2021-11-29 07:36 | NUR ---
MS RN OPENING NOTE Patient in bed, awake. A/O x 1. On room air, breathing evenly and unlabored. No SOB or s/s of distress noted. IV access on LAC #20, SL intact and patent. On tele monitoring showing SR, HR on the 70's. Safety precautions in place: bed in low, locked position; siderails up x 2; call light within reach. Will continue to monitor.
[2021-11-29 08:00] VITALS: BP 142/64
[2021-11-29] MEDS: DOCUSATE SODIUM 100 MG CAPSULE PO SCH (09:06)
[2021-11-29] MEDS: FERROUS SULFATE (325 MG) 325 MG/TAB TABLET PO SCH (09:07)
[2021-11-29] MEDS: ASPIRIN 81 MG TAB.CHEW PO SCH (09:07)
[2021-11-29] MEDS: CLOPIDOGREL BISULFATE 75 MG TABLET PO SCH (09:07)
[2021-11-29] MEDS ORDERED: ATOR40TA PO (09:38)
[2021-11-29] MEDS ORDERED: CLOP75TA15 PO (09:38)
[2021-11-29] MEDS: INSULIN REGULAR, HUMAN 100 UNIT/ML 3 ML VIAL SQ PRN (11:42)
[2021-11-29 12:00] VITALS: BP 141/71
--- NOTE | 2021-11-29 12:23 | NUR ---
SW received consult for stroke. Pt.'s daughter was at bedside. Pt. is alert and oriented x1. Pt. was unable to speak. Daughter stated that the stroke affected pt. According to daughter, pt. is getting discharged this afternoon, and daughter stated that she spoke with CM about SNF options.
--- NOTE | 2021-11-29 16:15 | NUR ---
DISCHARGE NOTE Received order for discharge. Patient is A/O x 1. Stable on room air, breathing evenly and unlabored. No SOB or s/s of distress noted. Report given to Jonny, of [facility]. Discharge instruction given to Gaye, daughter, verbalized understanding. All belongings accounted for, belonging sheet signed. IV access removed, catheter tip intact. Pressure dressing applied, no signs of bleeding noted. ID band removed. Exitcare folder given to EMT. Patient left in stable condition via ambulance with 2 advertising production manager.
== END 2021-11-29 16:19 | DRG 64 ==
LOC: ER 13:15 → TELE 17:56
PROVIDERS: ADMIT Internal Medicine; ATTEND Internal Medicine
DX: I63.512 Cerebral infarction due to unspecified occlusion or stenosis of left middle cerebral artery (principal); G93.41 Metabolic encephalopathy; N17.0 Acute kidney failure with tubular necrosis; N39.0 Urinary tract infection, site not specified; I69.354 Hemiplegia and hemiparesis following cerebral infarction affecting left non-dominant side; G81.91 Hemiplegia, unspecified affecting right dominant side; I10 Essential (primary) hypertension; E11.9 Type 2 diabetes mellitus without complications; E78.5 Hyperlipidemia, unspecified; F03.90 Unspecified dementia, unspecified severity, without behavioral disturbance, psychotic disturbance, mood disturbance, and anxiety; Z79.82 Long term (current) use of aspirin; Z79.4 Long term (current) use of insulin; Z99.3 Dependence on wheelchair; Z20.822 Contact with and (suspected) exposure to COVID-19; I67.1 Cerebral aneurysm, nonruptured; R29.723 NIHSS score 23; R47.81 Slurred speech
CPT/HCPCS: 36415; 70450-TC; 70496-TC; 70498-TC; 70551-TC; 71045-TC; 80048-TC; 81001; 82962-TC; 84484-TC; 85025-TC; 85730-TC; 87081-TC; 87086-TC; 92526; 92611-TC; 93307-TC; 97110-TC; 97112-TC; 97530-TC; C9803; G0378; J1650; J1815; J7050; Q9967

== ENCOUNTER 2021-12-07 14:52 | Inpatient (IN) | payer MEDICARE, OTHER ==
[~2021-12-07] VITALS: Ht 160 cm; Wt 63.5 kg
[~2021-12-07 14:52] MED LIST changes: +ATOR40TA PO; +CALC-167 PO; +CLOP75TA15 PO; +IBUP-1953 PO; +LOPE2TAB25 PO; -MULT-594 PO; +POLY17PO4 PO; -SODI1TAB24 PO
[2021-12-07] MEDS ORDERED: IV NS 0.9% 1,000 ML BAG IV ONE ×2 (15:00→16:30)
--- NOTE | 2021-12-07 15:10 | NUR ---
THE PATIENT IS TAKEN TO CT VIA RNEY
[2021-12-07] MEDS ORDERED: INSU100V27 SQ (15:22)
[2021-12-07] MEDS ORDERED: ACET-868 PO ×2 (15:22)
[2021-12-07] MEDS ORDERED: NA P133E RC (15:22)
[2021-12-07] MEDS ORDERED: INSU100V7 SQ (15:22)
[2021-12-07] MEDS ORDERED: AMIN30LI2 PO (15:22)
[2021-12-07] MEDS ORDERED: ASCO-352 PO (15:22)
[2021-12-07] MEDS ORDERED: MAGN400O6 PO (15:22)
[2021-12-07] MEDS ORDERED: MULT-447 PO (15:22)
[2021-12-07] MEDS ORDERED: ATOR40TA PO (15:22)
[2021-12-07] MEDS ORDERED: CLOP75TA15 PO (15:22)
[2021-12-07] MEDS ORDERED: BISA10SU11 RC (15:22)
[2021-12-07] MEDS ORDERED: CRAN425C6 PO (15:22)
--- NOTE | 2021-12-07 15:30 | NUR ---
pt bibra c/o altered more than usual .pt is non verbal ,connected to monitor .
[2021-12-07] MEDS ORDERED: CEFTRIAXONE 1GM BAG (ER ONLY) 50 ML IV ONE (16:09)
[2021-12-07 16:10] LABS: BASOPHILS # (AUTO) 0.1 K/uL (0.0-0.2); BASOPHILS % (AUTO) 0.4 % (0.0-2.0); EOSINOPHILS % (AUTO) 0.1 % (0.0-6.0); HEMATOCRIT 55 % (33-45); HEMOGLOBIN 16.8 g/dL (11.5-14.8); LYMPHOCYTES # (AUTO) 1.3 K/uL (0.8-4.8); LYMPHOCYTES % (AUTO) 5.5 % (20.0-44.0); MEAN CORPUSCULAR HGB CONC 31 g/dl (31.0-36.0); MEAN CORPUSCULAR VOLUME 96 fL (82-100); MONOCYTES # (AUTO) 0.8 K/uL (0.1-1.30); MONOCYTES % (AUTO) 3.4 % (2.0-12.0); NEUTROPHILS % (AUTO) 90.6 % (43.0-81.0); PLATELET COUNT (AUTO) 358 K/uL (150-450); WHITE BLOOD COUNT (AUTO) 23.1 K/uL (4.3-11.0)
--- NOTE | 2021-12-07 16:18 | NUR ---
covid antigen sent to the lab.
[2021-12-07 16:20] LABS: CALCIUM, SERUM 9.3 mg/dL (8.5-10.1); CARBON DIOXIDE 18 mmol/L (21-32); CHLORIDE 114 mmol/L (98-107); CREATININE 4.4 mg/dL (0.6-1.3); SERUM AMMONIA 38 umol/L (11-32); SODIUM SERUM 150 mmol/L (136-145)
[2021-12-07 16:26] LABS: GLUCOSE 708 mg/dL (74-106); UREA NITROGEN, BLOOD 165 mg/dL (7-18)
[2021-12-07] MEDS ORDERED: CEFTRIAXONE 1GM BAG (ER ONLY) 1 GM/50 ML PIGGYBACK IV ONE (16:30)
[2021-12-07] MEDS ORDERED: INSULIN REGULAR, HUMAN 100 UNIT/ML 10 ML VIAL IV ONE (16:30)
[2021-12-07] MEDS ORDERED: CALCIUM CHLORIDE 1,000 MG/10 ML DISP.SYRIN IV ONE (16:30)
[2021-12-07] MEDS ORDERED: SODIUM BICARBONATE SYR 50 MEQ/50 ML DISP.SYRIN IV ONE (16:30)
[2021-12-07] MEDS ORDERED: CALCIUM CHLORIDE 1,000 MG/10 ML DISP.SYRIN ONE (16:36)
[2021-12-07] MEDS ORDERED: SODIUM BICARBONATE SYR 50 MEQ/50 ML DISP.SYRIN ONE (16:36)
[2021-12-07] MEDS ORDERED: INSULIN REGULAR, HUMAN 100 UNIT/ML 10 ML VIAL ONE (16:36)
[2021-12-07 16:37] LABS: ALANINE AMINOTRANSFERASE 585 U/L (12-78); ALBUMIN 3.3 g/dL (3.4-5.0); ALKALINE PHOSPHATASE 314 U/L (46-116); ASPARTATE AMINOTRANSFERASE 393 U/L (15-37); BILIRUBIN,DIRECT 0.1 mg/dL (0.0-0.2); BILIRUBIN,TOTAL 0.6 mg/dL (0.2-1.0); TOTAL PROTEIN, SERUM 8.6 g/dL (6.4-8.2)
[2021-12-07 16:55] LABS: THYROID STIMULATING HORMONE 3.295 uIU/mL (0.358-3.74)
--- NOTE | 2021-12-07 17:32 | NUR ---
CALLED NURSING SUP REGARDING PT BED
[2021-12-07 17:33] LABS: COLOR,URINE AMBER (YELLOW)
[2021-12-07 17:34] LABS: LEUKOCYTE ESTERASE ,URINE LARGE (NEGATIVE); NITRITE, URINE NEGATIVE (NEGATIVE); PH,URINE 8.5 (5.0-8.0); PROTEIN,URINE 2+ mg/dl (NEGATIVE)
[2021-12-07 17:35] LABS: BILIRUBIN,URINE NEGATIVE (NEGATIVE); UGLUCOSE NEGATIVE (NEGATIVE); UROBILINOGEN,URINE NORMAL EU/dL (0.2)
[2021-12-07 17:38] LABS: BACTERIA,URINE Many /HPF (None Seen); RBC,URINE 0-2 /HPF (0-2); SQUAMOUS EPITHELIAL CELL,UR Few /HPF (None Seen)
[2021-12-07] MEDS ORDERED: DEXTROSE 50%-WATER 50 ML DISP.SYRIN IV PRN (18:00)
[2021-12-07] MEDS ORDERED: ACETAMINOPHEN 325 MG TABLET PO PRN ×2 (18:00)
[2021-12-07] MEDS: ASCORBIC ACID 500 MG TABLET PO SCH (18:00)
[2021-12-07] MEDS ORDERED: NA PHOS,M-B/NA PHOS,DI-BA 1 EA ENEMA RC PRN (18:00)
[2021-12-07] MEDS ORDERED: MAGNESIUM HYDROXIDE 30 ML UDC PO PRN ×2 (18:00)
[2021-12-07] MEDS ORDERED: INSULIN REGULAR, HUMAN 100 UNIT/ML 3 ML VIAL SQ PRN (18:00)
[2021-12-07] MEDS ORDERED: TRAMADOL HCL 50 MG TABLET PO PRN (18:00)
[2021-12-07] MEDS ORDERED: BISACODYL SUPP (10 MG) 10 MG/SUPP.RECT SUPP.RECT RC PRN (18:00)
[2021-12-07] MEDS ORDERED: Z GUARD REMEDY 4 OZ OINT TP PRN (18:00)
[2021-12-07] MEDS ORDERED: ONDANSETRON HCL/PF 4 MG/2 ML VIAL IVP PRN (18:00)
[2021-12-07] MEDS ORDERED: MAG HYDROX/AL HYDROX/SIMETH 30 ML UDC PO PRN (18:00)
--- NOTE | 2021-12-07 18:46 | NUR ---
vit c not given pt is not able to follow commands.
[2021-12-07 19:28] LABS: ABG BASE EXCESS -3.3 mmol/L; ABG PH 7.384 (7.350-7.450); ABG PO2 138.2 mmHg (75.0-100.0); AaDO2 76.7 mmHg; COHb 2.4 % (0.5-1.5); MetHb 0.3 % (0.0-1.5); O2Hb 96.3 % (94.0-97.0); SITE, ABG Right Radial; VENT MODE, BG NC 4L
[2021-12-07] MEDS: IV 1/2NS 1000 ML 1,000 ML IV PRN (19:57)
--- NOTE | 2021-12-07 20:11 | NUR ---
FSBS: 497. CALLED HOUSE SUP FOR FREDO BED
--- NOTE | 2021-12-07 20:29 | NUR ---
report given to
--- NOTE | 2021-12-07 20:45 | NUR ---
pt transferred to [facility] per acls protocol.
--- NOTE | 2021-12-07 20:45 | NUR ---
FREDO RN NOTE ADMITTED PT FROM ER WITH THE DX OF UTI. BY DR ABEBE. PT IS LETHARGIC. REACT TO PAINFUL STIMULATION. NO S/S OF PAIN NOTED. NO DISTRESS OR DISCOMFORT NOTED. ON ST 103. F/C INTACT AND PATENT DRAINING CLOUDY PUSSY URINE WITH ODOR. KEPT HOB ELEVATED. SKIN ASSESSMENT DONE PICTURES TAKEN AND PLACE THEM IN THE CHART. VSS. SIDE RAILS UP X 2 AND CALL LIGHT WITHIN REACH. CONTINUE TO MONITOR HER.
--- NOTE | 2021-12-07 21:00 | NUR ---
2100 PLACED ON OTONIEL HUGGER WARMING BLANKET DUE TO TEMP 94.
[2021-12-07] MEDS: POLYETHYLENE GLYCOL 3350 17 GM POWD.PACK PO SCH (21:10)
[2021-12-07] MEDS: SENNOSIDES 8.6 MG TABLET PO SCH (21:10)
[2021-12-07] MEDS: ATORVASTATIN 40 MG TABLET PO SCH (21:10)
--- NOTE | 2021-12-07 21:10 | NUR ---
FREDO RN NOTE HELD PO MEDS DUE TO PT IS LETHARGIC
[2021-12-07] MEDS: BLOOD SUGAR DIAGNOSTIC 1 EACH STRIP IN SCH (21:54)
[2021-12-07] MEDS: INSULIN GLARGINE, 100 UNIT/ML CARTRIDGE SQ SCH (21:58)
--- NOTE | 2021-12-07 22:01 | NUR ---
FREDO RN NOTE PT BS 552, JJ LUO INFORMED. GIVEN PT REG INSULIN 20 UNITS SQ AND LANTUS 45 UNITS SQ ORDERED. REPORT GIVEN TO CHACHO FOR CONTINUE TO CARE.
--- NOTE | 2021-12-07 22:10 | NUR ---
2210 REGARDING BS 552, CONE WORKER LUO WITH ORDER TO MONITOR PATIENT AFTER INSULIN ADMINISTRATION AND TO PUT PT NPO DUE TO PATIENT OBTUNDED.
--- NOTE | 2021-12-07 22:30 | NUR ---
RN NOTE RECEIVED PATIENT IN BED RESTING ALERT ORIENTED X0 NOT VERBALLY RESPONSIVE,LETHARGIC ON 3L OXYGEN VIA NASAL CANNULA O2:96% IV SITE IS ON RIGHT AC INTACT PATENT ON /2 NS IV HYDRATION 125CC/HR.CHACON CATHETER IN PLACE URINE DRAINING YELLOW AND CLEAR BY GRAVITY, SAFETY MEASURE IMPLEMENT HEAD OF THE BED ELEVATED,CALL LIGHT WITHIN REACH,BED IN LOW POSITION AND LOCKED CONTINUE TO MONITOR.
[2021-12-07 22:53] VITALS: BP 103/76
[2021-12-08] VITALS (65 sets, daily range): BP systolic 31–127; BP diastolic 17–78
[2021-12-08] MEDS ORDERED: INSULIN REGULAR, HUMAN 100 UNIT/ML 3 ML VIAL SQ PRN
--- NOTE | 2021-12-08 | NUR ---
RN NOTE BS IS 467 NOTIFIED SNAKER DRIVING HORSES MARYA LUO,HE ORDERED REPEAT BLOOD SUGAR AT 0200 AND THAN EVERY 4 HOURS NOTED AND CARRIED OUT.
--- NOTE | 2021-12-08 02:00 | NUR ---
RN NOTE BLOOD SUGAR IS 451 NOTIFIED SENIOR PROPERTY ACCOUNTANT LUO WITH NEW ORDER INSULIN REGULAR 8 UNITS NOTED AND CARRIED OUT.
[2021-12-08] MEDS ORDERED: INSULIN REGULAR, HUMAN 100 UNIT/ML 10 ML VIAL SQ ONE (02:30)
[2021-12-08] MEDS: IV 1/2NS 1000 ML 1,000 ML IV PRN (03:51)
[2021-12-08 04:08] LABS: BASOPHILS # (AUTO) 0.1 K/uL (0.0-0.2); BASOPHILS % (AUTO) 0.4 % (0.0-2.0); HEMATOCRIT 49 % (33-45); HEMOGLOBIN 14.8 g/dL (11.5-14.8); LYMPHOCYTES # (AUTO) 1.5 K/uL (0.8-4.8); LYMPHOCYTES % (AUTO) 4.6 % (20.0-44.0); MEAN CORPUSCULAR HGB CONC 30 g/dl (31.0-36.0); MEAN CORPUSCULAR VOLUME 95 fL (82-100); MONOCYTES # (AUTO) 1.2 K/uL (0.1-1.30); MONOCYTES % (AUTO) 3.5 % (2.0-12.0); NEUTROPHILS # (AUTO) 30.1 K/uL (1.8-8.9); NEUTROPHILS % (AUTO) 91.5 % (43.0-81.0); PLATELET COUNT (AUTO) 348 K/uL (150-450); RED BLOOD CELL COUNT(AUTO) 5.12 MIL/uL (4.0-5.2)
--- NOTE | 2021-12-08 04:10 | NUR ---
0410 PETER LUO WAS NOTIFIED OF PATIENT'S RR 40S, FEVER OF 100.6 AXILLARY, AND NO URINE OUTPUT SINCE PATIENT ADMITTED TO UNIT WITH ORDER MADE ORDER NOTED AND CARRIED OUT.
[2021-12-08 04:15] LABS: WHITE BLOOD COUNT (AUTO) 32.9 K/uL (4.3-11.0)
[2021-12-08] MEDS ORDERED: ACETAMINOPHEN 650 MG/SUPP.RECT RC PRN (04:30)
[2021-12-08 04:49] LABS: CALCIUM, SERUM 10.5 mg/dL (8.5-10.1); CARBON DIOXIDE 21 mmol/L (21-32); CHLORIDE 117 mmol/L (98-107); CREATININE 5.4 mg/dL (0.6-1.3); PHOSPHORUS 5.9 mg/dL (2.5-4.9); POTASSIUM 5.5 mmol/L (3.5-5.1); SODIUM SERUM 155 mmol/L (136-145)
[2021-12-08 05:17] LABS: GLUCOSE 499 mg/dL (74-106); UREA NITROGEN, BLOOD 189 mg/dL (7-18)
--- NOTE | 2021-12-08 05:30 | NUR ---
0530 CRITICAL BUN-189, Mg 4.0, Glucose 499, creat 5.4, K+ 5.5 relayed to PETER Squires. Awaiting orders.
--- NOTE | 2021-12-08 05:52 | NUR ---
RN NOTE PATIENT WBC 32.9,BUN 189,GLUCOSE 499 CALLED ASSISTANT FRONT END MANAGER SUPERVISOR CIGAR MAKING HAND JJ LUO HE SAID WILL CALL WIND TURBINE TECHNICIAN CONTINUE TO MONITOR.
--- NOTE | 2021-12-08 06:54 | NUR ---
RN NOTE PATIENT REMAINS ON LETHARGIC ON 3L OXYGEN VIA NASAL CANNULA, O2:100% EYE CLOSED HR 126 BUN 189 WBC 32.9 GLUCOSE 499 ENDORSE NEXT COMING SHIFT FOR CONTINUATION OF CARE.
[2021-12-08] MEDS ORDERED: IV NS 0.9% 1,000 ML IV ONE ×2 (07:30→12:00)
[2021-12-08] MEDS: BLOOD SUGAR DIAGNOSTIC 1 EACH STRIP IN SCH ×8 (07:44→23:57)
[2021-12-08] MEDS ORDERED: NOREPINEPHRINE 8 MG in IV NS 0.9% 242 ML IV PRN (08:00)
[2021-12-08] MEDS ORDERED: VANCOMYCIN 1 GM in IV D5W 250ml IV ONE (08:00)
[2021-12-08] MEDS: ZOSYN IVPB 2.25 G in IV D5W 50ml IV SCH ×4 (08:43→23:59)
[2021-12-08 08:49] LABS: ABG BASE EXCESS -16.3 mmol/L; ABG OXYGEN SATURATION 92.7 % (92.0-98.5); ABG PCO2 21.8 mmHg (35.0-45.0); ABG PH 7.237 (7.350-7.450); ABG PO2 75.4 mmHg (75.0-100.0); AaDO2 184.7 mmHg; COHb 2.3 % (0.5-1.5); MetHb 0.3 % (0.0-1.5); O2Hb 90.3 % (94.0-97.0); SITE, ABG Right Brachial; VENT MODE, BG 6L NC
[2021-12-08] MEDS: DOCUSATE SODIUM 100 MG CAPSULE PO SCH (09:00)
[2021-12-08] MEDS: ASPIRIN 81 MG TAB.CHEW PO SCH (09:00)
[2021-12-08] MEDS ORDERED: IV 1/2NS 1000 ML 1,000 ML IV ONE (09:30)
[2021-12-08] MEDS ORDERED: PROPOFOL 100 ML IV PRN (09:30)
--- NOTE | 2021-12-08 09:30 | NUR ---
RT PATIENT ORALLY INTUBATED WITH A 7.5 ETT SECURED AT 23CM AT THE LIP. POSITIVE CO2 DETECTOR COLOR CHANGE. PLACED ON [facility] V[facility] WITH ORDERED SETTINGS ROCHELLE WELL. NILTONU BAG AT HOB. Addendum: 12/08/21 at 1003 by CULLEN VAUGHN RT Amended: Links added.
[2021-12-08 10:35] LABS: ABG BASE EXCESS -19.7 mmol/L; ABG OXYGEN SATURATION 98.7 % (92.0-98.5); ABG PCO2 26.4 mmHg (35.0-45.0); ABG PH 7.112 (7.350-7.450); ABG PO2 149.4 mmHg (75.0-100.0); AaDO2 537.2 mmHg; COHb 2.2 % (0.5-1.5); MetHb 0.3 % (0.0-1.5); O2Hb 96.2 % (94.0-97.0); SITE, ABG A-Line
[2021-12-08] MEDS: PROPOFOL 10MG/ML 50ML 50 ML IV PRN ×2 (10:43→16:27)
[2021-12-08] MEDS ORDERED: IV NS 0.9% 1,000 ML IV STA (11:08)
[2021-12-08] MEDS ORDERED: ETOMIDATE 2 MG/ML VIAL IV ONE (11:12)
[2021-12-08 11:30] LABS: LYMPHOCYTES % (MANUAL) 8 % (16-48); MONOCYTES % (MANUAL) 4 % (0-11.0); NEUTROPHILS % (MANUAL) 88 (42-76)
[2021-12-08] MEDS: CLOPIDOGREL BISULFATE 75 MG TABLET PO SCH (11:50)
[2021-12-08] MEDS: FERROUS SULFATE (325 MG) 325 MG/TAB TABLET PO SCH (11:50)
[2021-12-08] MEDS ORDERED: PHENYLEPHRINE 50 MG in IV NS 0.9% 245 ML IV PRN (12:00)
[2021-12-08] MEDS: PHENYLEPHRINE 50 MG in IV NS 0.9% 245 ML IV PRN ×2 (12:00→19:53)
[2021-12-08] MEDS: INSULIN REGULAR, HUMAN 100 UNIT in IV NS 0.9% 99 ML IV PRN ×2 (12:07)
[2021-12-08 12:32] LABS: ABG BASE EXCESS -21.2 mmol/L; ABG OXYGEN SATURATION 98.4 % (92.0-98.5); ABG PCO2 23.5 mmHg (35.0-45.0); ABG PH 7.092 (7.350-7.450); ABG PO2 147.2 mmHg (75.0-100.0); AaDO2 542.3 mmHg; COHb 2.3 % (0.5-1.5); MetHb 0.2 % (0.0-1.5); O2Hb 95.9 % (94.0-97.0); SITE, ABG A-Line
--- NOTE | 2021-12-08 12:50 | NUR ---
MD COMMUNICATION RN SPOKE TO DR EDWARDO MD GAVE ORDERS, GIVE TWO AMPS FOR SODIUM BICARB IV NOW, D5 HCO3 AT 150 MEQ RUNNING AT 125 ML/HR. RN ACKNOWLEDGED ORDERS AND WILL ENTER DIRECTED.
[2021-12-08] MEDS ORDERED: SODIUM BICARBONATE SYR 50 MEQ/50 ML DISP.SYRIN IV ONE (13:00)
[2021-12-08] MEDS: Sodium Bicarbonate 150 MEQ in IV D5W 1,000 ML IV PRN ×2 (13:05→22:38)
[2021-12-08 14:15] LABS: CALCIUM, SERUM 7.8 mg/dL (8.5-10.1); CARBON DIOXIDE 12 mmol/L (21-32); CHLORIDE 120 mmol/L (98-107); CREATININE 6.1 mg/dL (0.6-1.3); SODIUM SERUM 154 mmol/L (136-145)
[2021-12-08 14:37] LABS: GLUCOSE 387 mg/dL (74-106); POTASSIUM 7.4 mmol/L (3.5-5.1); UREA NITROGEN, BLOOD 180 mg/dL (7-18)
--- NOTE | 2021-12-08 15:09 | NUR ---
IT TECHNICAL SUPPORT SPECIALIST CRITICAL LAB VALUES REC'D FROM LAB BY PHONE AND GIVEN TO SHAYY NIÑO RN. HE SPOKE WITH DR VANCE BY PHONE. HD TO START.
[2021-12-08] MEDS ORDERED: NOREPINEPHRINE 32 MG in IV NS 0.9% 218 ML IV PRN (15:30)
[2021-12-08] MEDS: NOREPINEPHRINE 32 MG in IV NS 0.9% 218 ML IV PRN (15:44)
[2021-12-08 16:00] LABS: BASOPHILS % (AUTO) 0.3 % (0.0-2.0); EOSINOPHILS % (AUTO) 0.1 % (0.0-6.0); HEMATOCRIT 37 % (33-45); LYMPHOCYTES # (AUTO) 1.3 K/uL (0.8-4.8); LYMPHOCYTES % (AUTO) 10.6 % (20.0-44.0); MEAN CORPUSCULAR HGB CONC 30 g/dl (31.0-36.0); MEAN CORPUSCULAR VOLUME 99 fL (82-100); MONOCYTES # (AUTO) 0.2 K/uL (0.1-1.30); MONOCYTES % (AUTO) 1.7 % (2.0-12.0); NEUTROPHILS # (AUTO) 10.4 K/uL (1.8-8.9); NEUTROPHILS % (AUTO) 87.3 % (43.0-81.0); PLATELET COUNT (AUTO) 93 K/uL (150-450); RED BLOOD CELL COUNT(AUTO) 3.71 MIL/uL (4.0-5.2); WHITE BLOOD COUNT (AUTO) 11.9 K/uL (4.3-11.0)
[2021-12-08] MEDS ORDERED: ALBUMIN 25% 25 GM in PREMIX 1 EA IV PRN (16:00)
[2021-12-08] MEDS ORDERED: CEFTRIAXONE 1 G in IV D5W 50 ML IV SCH (18:00)
[2021-12-08] MEDS: ASCORBIC ACID 500 MG TABLET PO SCH (18:00)
--- NOTE | 2021-12-08 19:11 | NUR ---
MD COMMUNICATION RN INFORMED DR ELIAS THAT PT HR IS 176 AND IN SVT. MD GAVE ORDERS: PUSH ADENOSINE 6MG IVP NOW. IF SVT CONTINUES PUSH 12 MG ADENOSINE. START AMIODRAONE DRIP. RN ACKNOWLEDGED AND WILL EXECUTE ORDERS
[2021-12-08] MEDS ORDERED: AMIODARONE 150 MG in IV D5W 100 ML IV ONE (19:30)
[2021-12-08] MEDS ORDERED: ADENOSINE 6 MG/2 ML VIAL IVP ONE (19:30)
[2021-12-08] MEDS: AMIODARONE 450 MG in IV D5W 241 ML IV PRN (19:59)
[2021-12-08 20:57] LABS: BASOPHILS % (AUTO) 0.3 % (0.0-2.0); EOSINOPHILS % (AUTO) 0.6 % (0.0-6.0); HEMATOCRIT 29 % (33-45); HEMOGLOBIN 9.2 g/dL (11.5-14.8); LYMPHOCYTES # (AUTO) 1.4 K/uL (0.8-4.8); LYMPHOCYTES % (AUTO) 16.1 % (20.0-44.0); MEAN CORPUSCULAR HGB CONC 31 g/dl (31.0-36.0); MEAN CORPUSCULAR VOLUME 95 fL (82-100); MONOCYTES # (AUTO) 0.1 K/uL (0.1-1.30); MONOCYTES % (AUTO) 1.7 % (2.0-12.0); NEUTROPHILS # (AUTO) 6.8 K/uL (1.8-8.9); NEUTROPHILS % (AUTO) 81.3 % (43.0-81.0); PLATELET COUNT (AUTO) 59 K/uL (150-450); RED BLOOD CELL COUNT(AUTO) 3.07 MIL/uL (4.0-5.2); WHITE BLOOD COUNT (AUTO) 8.4 K/uL (4.3-11.0)
[2021-12-08 21:23] LABS: ALANINE AMINOTRANSFERASE 4620 U/L (12-78); ALKALINE PHOSPHATASE 195 U/L (46-116); CARBON DIOXIDE 16 mmol/L (21-32); CHLORIDE 111 mmol/L (98-107); CREATININE 3.1 mg/dL (0.6-1.3); GLUCOSE 193 mg/dL (74-106); POTASSIUM 3.8 mmol/L (3.5-5.1); SODIUM SERUM 147 mmol/L (136-145); TOTAL PROTEIN, SERUM 3.7 g/dL (6.4-8.2)
[2021-12-08 21:26] LABS: UREA NITROGEN, BLOOD 82 mg/dL (7-18)
[2021-12-08] MEDS: ATORVASTATIN 40 MG TABLET PO SCH (21:27)
[2021-12-08] MEDS: POLYETHYLENE GLYCOL 3350 17 GM POWD.PACK PO SCH (21:27)
[2021-12-08 21:28] LABS: CALCIUM, SERUM 5.7 mg/dL (8.5-10.1)
[2021-12-08] MEDS: SENNOSIDES 8.6 MG TABLET PO SCH (21:28)
[2021-12-08] MEDS: INSULIN GLARGINE, 100 UNIT/ML CARTRIDGE SQ SCH (22:00)
[2021-12-08] MEDS ORDERED: Calcium Gluconate 1GM/10ML 4.65 MEQ in IV D5W 50 ML IV ONE (22:00)
[2021-12-08] MEDS ORDERED: Calcium Gluconate 0.465 MEQ/ML VIAL IV ONE (22:06)
--- NOTE | 2021-12-08 22:23 | NUR ---
MED NOTE: 2200 PO MEDS HELP. PT NPO STATUS. JOSE HELD PT ON INSULIN DRIP. CALCIUM GLUCONATE ADMINISTERED UNDER VERIFIED DOSE.
[2021-12-08 23:15] LABS: ASPARTATE AMINOTRANSFERASE > 1000 U/L (15-37)
[2021-12-09] VITALS (73 sets, daily range): BP systolic 0–128; BP diastolic 0–67
[2021-12-09] MEDS: PROPOFOL 10MG/ML 50ML 50 ML IV PRN ×2 (00:13→03:58)
[2021-12-09] MEDS: NOREPINEPHRINE 32 MG in IV NS 0.9% 218 ML IV PRN ×2 (00:30→10:26)
[2021-12-09] MEDS: BLOOD SUGAR DIAGNOSTIC 1 EACH STRIP IN SCH ×12 (01:08→12:06)
[2021-12-09] MEDS: PHENYLEPHRINE 50 MG in IV NS 0.9% 245 ML IV PRN ×4 (01:09→15:42)
[2021-12-09] MEDS: AMIODARONE 450 MG in IV D5W 241 ML IV PRN (02:58)
[2021-12-09 04:57] LABS: ALBUMIN 1.8 g/dL (3.4-5.0); ALKALINE PHOSPHATASE 210 U/L (46-116); CARBON DIOXIDE 14 mmol/L (21-32); CHLORIDE 106 mmol/L (98-107); CREATININE 3.5 mg/dL (0.6-1.3); GLUCOSE 254 mg/dL (74-106); MAGNESIUM 1.9 mg/dL (1.8-2.4); PHOSPHORUS 7.1 mg/dL (2.5-4.9); POTASSIUM 4.3 mmol/L (3.5-5.1); SODIUM SERUM 147 mmol/L (136-145); TOTAL PROTEIN, SERUM 3.7 g/dL (6.4-8.2)
[2021-12-09 05:07] LABS: EOSINOPHILS % (AUTO) 2.3 % (0.0-6.0); HEMATOCRIT 30 % (33-45); HEMOGLOBIN 9.4 g/dL (11.5-14.8); LYMPHOCYTES # (AUTO) 1.4 K/uL (0.8-4.8); LYMPHOCYTES % (AUTO) 11.6 % (20.0-44.0); MEAN CORPUSCULAR HGB CONC 32 g/dl (31.0-36.0); MEAN CORPUSCULAR VOLUME 94 fL (82-100); MONOCYTES # (AUTO) 0.2 K/uL (0.1-1.30); NEUTROPHILS # (AUTO) 9.8 K/uL (1.8-8.9); NEUTROPHILS % (AUTO) 84.1 % (43.0-81.0); PLATELET COUNT (AUTO) 71 K/uL (150-450); RED BLOOD CELL COUNT(AUTO) 3.19 MIL/uL (4.0-5.2); WHITE BLOOD COUNT (AUTO) 11.7 K/uL (4.3-11.0)
[2021-12-09] MEDS: ZOSYN IVPB 2.25 G in IV D5W 50ml IV SCH ×2 (05:28→12:06)
--- NOTE | 2021-12-09 06:23 | NUR ---
ICU/RN: PT CONVERTED FROM CONTROLLED AFIB TO ACCELERATED JUNCTIONAL RHYTHM. MARYA LUO AGRICULTURAL AGENT NOTIFIED AND HE ADVISED TO CONTINUE AMIODARONE DRIP. MARYA LUO ALSO MADE AWARE OF CRITICAL CALCIUM 5.7. WILL CONTINUE TO MONITOR.
[2021-12-09 06:30] LABS: CALCIUM, SERUM 5.8 mg/dL (8.5-10.1); UREA NITROGEN, BLOOD 90 mg/dL (7-18)
[2021-12-09 06:31] LABS: ALANINE AMINOTRANSFERASE > 1000 U/L (12-78); ASPARTATE AMINOTRANSFERASE > 1000 U/L (15-37)
--- NOTE | 2021-12-09 07:05 | NUR ---
RN NOTES RECEIVED PT ON BED INTUBATION , SEDATED, ON DIPRIVAN AT 20 MCG/KG/MIN, LEVO AT 1 MCG/KG/MIN, JEANETTE AT 2.7 MCG/KG/MIN, AMIO AT .5 MG /MIN, INSULIN AT 3.6 U/HR , BICARB AT 125CC/HR RUNNING , ON TELE HR IN 70'S , OGT TO LIS WITH COFFEE GROUND GASTRIC DRAINAGE RUNNING , DR ABEBE AWARE , LEFT IJ TLC , R FEMORAL HD CATH, AND LEFT A-LINE SITES CLEAN, DRY AND INTACT , FEXI SEAL DRAINING WITH BROWNISH BLACK LOOSE STOOL TO GRAVITY, PT IS FULL CODE, SR UP x3, CALL LIGHT WITHIN EASY REACH , BED LOCKED AND IN LOWEST POSITION, CONTINUE TO MONITOR CLOSELY .
[2021-12-09] MEDS: Sodium Bicarbonate 150 MEQ in IV D5W 1,000 ML IV PRN ×2 (07:26→16:49)
--- NOTE | 2021-12-09 07:59 | NUR ---
WOUND CARE CONSULT: PT HEMODYNAMICALLY UNSTABLE TO BE TURNED FOR SKIN ASSESSMENT AT THIS TIME. REVIEWED CHART, NURSING DOCUMENTATION AND PHOTOS WHICH INDICATE SACRAL DEEP TISSUE INJURIES EXTENDING TO BUTTOCKS, DISCOLORATION OF HANDS AND ARMS WELL SKIN TEAR TO LEFT EYELID, ALL PRESENT ON ADMISSION. DR DEL REAL NOTIFIED OF SURGICAL CONSULT REQUEST. PT NOTED TO HAVE CHACON CATH AND RECTAL TUBE. PT IS CURRENTLY INTUBATED. RECOMMENDATIONS MADE FOR SKIN PROTECTION. DISCUSSED WITH NURSING STAFF. MD IN AGREEMENT WITH PLAN OF CARE.
[2021-12-09 08:46] LABS: ABG BASE EXCESS -14.2 mmol/L; ABG PH 7.343 (7.350-7.450); ABG PO2 80.4 mmHg (75.0-100.0); AaDO2 614.6 mmHg; COHb 1.9 % (0.5-1.5); MetHb 0.2 % (0.0-1.5); PEEP,BG 0 cm H2O; SITE, ABG A-Line; VT, ABG 475 mL
[2021-12-09] MEDS: DOCUSATE SODIUM 100 MG CAPSULE PO SCH (09:00)
[2021-12-09] MEDS: CLOPIDOGREL BISULFATE 75 MG TABLET PO SCH (09:03)
[2021-12-09] MEDS: FERROUS SULFATE (325 MG) 325 MG/TAB TABLET PO SCH (09:03)
[2021-12-09] MEDS: ASPIRIN 81 MG TAB.CHEW PO SCH (09:03)
[2021-12-09 09:29] LABS: ALBUMIN 1.6 g/dL (3.4-5.0); BILIRUBIN,DIRECT 0.4 mg/dL (0.0-0.2); TOTAL PROTEIN, SERUM 3.6 g/dL (6.4-8.2)
[2021-12-09] MEDS ORDERED: VASOPRESSIN INJ 40 UNIT in IV NS 0.9% 38 ML IV PRN (09:30)
[2021-12-09] MEDS ORDERED: IV NS 0.9% 1,000 ML IV ONE (09:30)
--- NOTE | 2021-12-09 10:00 | NUR ---
RN NOTES PT'S DAUGHTERS , HUY AND SAKINA AT THE BEDSIDE VISITING . UPDATED INFORMATION GIVEN TO FAMILY REGARDING PT STATUS. PER FAMILY REQUEST AND MD ORDER , DNR ORDER RECEIVED AND PLACED IN THE CHART .
[2021-12-09] MEDS ORDERED: VANCOMYCIN 500 MG in IV D5W 100 ML IV PRN (11:00)
--- NOTE | 2021-12-09 11:28 | NUR ---
RN NOTES UNABLE TO GET ACCURATE O2 SAT ON THE MONITOR , DR ABEBE AWARE, CONTINUE TO MONITOR.
--- NOTE | 2021-12-09 11:40 | NUR ---
RN NOTES BP STILL LOW ,DR ABEBE NOTIFIED, VASOPRESSIN STATED . CONTINUE TO MONITOR .
[2021-12-09] MEDS: INSULIN REGULAR, HUMAN 100 UNIT in IV NS 0.9% 99 ML IV PRN ×2 (12:03)
[2021-12-09] MEDS ORDERED: PANTOPRAZOLE 40 MG VIAL IV SCH (13:00)
[2021-12-09] MEDS ORDERED: HYDROCORTISONE SOD SUCCINATE 100 MG/2 ML VIAL IV SCH (13:00)
--- NOTE | 2021-12-09 13:00 | NUR ---
RN NOTES COFFEE GROUND GASTRIC DRAINING NOTED, STOOL SENT FOR OB FOR MD ORDER
[2021-12-09] MEDS ORDERED: DEXTROSE 50%-WATER 50 ML DISP.SYRIN IV PRN (13:30)
[2021-12-09] MEDS ORDERED: INSULIN REGULAR, HUMAN 100 UNIT/ML 3 ML VIAL SQ PRN (13:30)
[2021-12-09] MEDS ORDERED: Calcium Gluconate 1GM/10ML 4.65 MEQ in IV D5W 50 ML IV ONE (14:00)
[2021-12-09] MEDS ORDERED: NEOMY SULF/BACITRAC ZN/POLY 15 GM TUBE TP SCH (14:30)
[2021-12-09 15:06] LABS: OCCULT BLOOD STOOL POSITIVE (NEGATIVE)
[2021-12-09 16:10] LABS: BAND % (MANUAL) 20 % (0.0-5.0); LYMPHOCYTES % (MANUAL) 10 % (16-48); MYELOCYTES % 11 % (0-0); NEUTROPHILS % (MANUAL) 58 (42-76); PROMYELOCYTES % 1 % (0-0)
--- NOTE | 2021-12-09 16:50 | NUR ---
RN NOTES PT ON THREE PRESSORS , MAXED OUT , BP AND HR DROPPING DOWN , UNABLE TO GET O2 SAT , PT IS DNR, MD AND FAMILY AWARE .
--- NOTE | 2021-12-09 17:09 | NUR ---
PATIENT NOTED ASYTOLE ON MONITOR. NO HEART TONE. NO PALPABLE PULSES. PUPILS FIXED AND DILATED. NO SPONTANEOUS BREATHING. PATIENT MAX ON 3 PRESSORS. PATIENT ON DNR STATUS. PRONOUNCED.
--- NOTE | 2021-12-09 17:10 | NUR ---
RN NOTES NURSING PATENT LAWYER , DR ABEBE , ADMITTING OFFICE AND FAMILY NOTIFIED THAT PT . BODY RELEASED BY [facility] , CC [phone]
--- NOTE | 2021-12-09 17:10 | NUR ---
RN NOTES NO BELONGINGS NOTED, FAMILY AT HE BEDSIDE,
--- NOTE | 2021-12-09 17:15 | NUR ---
RN NOTES FAMILY AT THE BEDSIDE
[2021-12-09] MEDS ORDERED: BLOOD SUGAR DIAGNOSTIC 1 EACH STRIP IN SCH ×2 (18:00)
[2021-12-09] MEDS ORDERED: PHENYLEPHRINE 100 MG in IV NS 0.9% 240 ML IV PRN (18:00)
--- NOTE | 2021-12-09 18:40 | NUR ---
RN NOTES POST MORTEM CARE DONE, BODY SENT TO [facility] .
[2021-12-09] MEDS ORDERED: VANCOMYCIN 500 MG in IV D5W 100ml IV SCH (20:00)
== END 2021-12-09 18:53 | DRG 871 ==
LOC: ER 14:55 → TRANSITION 18:32 → TELE1 20:15 → TELE-TD 21:49 → ICU 12-08 07:24
PROVIDERS: ADMIT Internal Medicine; ATTEND Internal Medicine
PROC: 5A1945Z Respiratory Ventilation, 24-96 Consecutive Hours (ICD-10-PCS; principal; 2021-12-08)
PROC: 0BH18EZ Insertion of Endotracheal Airway into Trachea, Via Natural or Artificial Opening Endoscopic (ICD-10-PCS; 2021-12-08)
PROC: 05HN33Z Insertion of Infusion Device into Left Internal Jugular Vein, Percutaneous Approach (ICD-10-PCS; 2021-12-08)
PROC: B544ZZA Ultrasonography of Left Jugular Veins, Guidance (ICD-10-PCS; 2021-12-08)
PROC: 06HM33Z Insertion of Infusion Device into Right Femoral Vein, Percutaneous Approach (ICD-10-PCS; 2021-12-08)
PROC: B54BZZA Ultrasonography of Right Lower Extremity Veins, Guidance (ICD-10-PCS; 2021-12-08)
PROC: 04HL33Z Insertion of Infusion Device into Left Femoral Artery, Percutaneous Approach (ICD-10-PCS; 2021-12-08)
PROC: 5A1D70Z Performance of Urinary Filtration, Intermittent, Less than 6 Hours Per Day (ICD-10-PCS; 2021-12-08)
DX: A41.9 Sepsis, unspecified organism (principal); E11.10 Type 2 diabetes mellitus with ketoacidosis without coma; E43 Unspecified severe protein-calorie malnutrition; N17.0 Acute kidney failure with tubular necrosis; R65.21 Severe sepsis with septic shock; G92.8 Other toxic encephalopathy; K72.00 Acute and subacute hepatic failure without coma; J96.01 Acute respiratory failure with hypoxia; J18.9 Pneumonia, unspecified organism; N39.0 Urinary tract infection, site not specified; E87.0 Hyperosmolality and hypernatremia; I69.351 Hemiplegia and hemiparesis following cerebral infarction affecting right dominant side; F03.90 Unspecified dementia, unspecified severity, without behavioral disturbance, psychotic disturbance, mood disturbance, and anxiety; I10 Essential (primary) hypertension; E86.0 Dehydration; E78.5 Hyperlipidemia, unspecified; D69.6 Thrombocytopenia, unspecified; E83.51 Hypocalcemia; E86.1 Hypovolemia; E88.09 Other disorders of plasma-protein metabolism, not elsewhere classified; E87.5 Hyperkalemia; I25.10 Atherosclerotic heart disease of native coronary artery without angina pectoris; Z99.3 Dependence on wheelchair; Z95.1 Presence of aortocoronary bypass graft; Z79.82 Long term (current) use of aspirin; Z79.4 Long term (current) use of insulin; Z87.440 Personal history of urinary (tract) infections; E83.9 Disorder of mineral metabolism, unspecified; E83.41 Hypermagnesemia; L89.156 Pressure-induced deep tissue damage of sacral region; S01.111A Laceration without foreign body of right eyelid and periocular area, initial encounter; X58.XXXA Exposure to other specified factors, initial encounter; Y93.9 Activity, unspecified; Y92.89 Other specified places as the place of occurrence of the external cause; Z20.822 Contact with and (suspected) exposure to COVID-19; Z66 Do not resuscitate
CPT/HCPCS: 31720; 36415; 36600; 70450-TC; 71045-TC; 76700-TC; 76770-TC; 80048-TC; 80053-TC; 80076-TC; 80202-TC; 81001; 82140-TC; 82272-TC; 82533; 82803-TC; 82962-TC; 83605-TC; 83735-TC; 84100-TC; 84443-TC; 84478-TC; 84484-TC; 85025-TC; 85730-TC; 86706; 86850-TC; 87040-TC; 87081-TC; 87086-TC; 87340; 90935-TC; 94002-TC; 94003-TC; 94760-TC; A4216; C1750; C9113; C9803; G0378; J0153; J0282; J0610; J0696; J1720; J1815; J2370; J2543; J3370; J3490; J7030; J7040; J7050; J7060; J7070; P9047